=== PATIENT | female | born 1995 | race Hispanic/Latino ===

== ENCOUNTER 2019-07-27 21:06 | Inpatient (IN) | payer BC, MEDICAID ==
[~2019-07-27] VITALS: Ht 162.6 cm; Wt 93.9 kg
[2019-07-27] MEDS ORDERED: AMPICILLIN 2GM+NS 100ML 100 ML IV SCH (21:30)
[2019-07-27] MEDS ORDERED: PHARMACY COMMUNICATION MISC SCH (21:45)
[2019-07-27 22:07] LABS: APPEARANCE,URINE Cloudy (CLEAR); BILIRUBIN,URINE Negative (NEGATIVE); COLOR,URINE Yellow (YELLOW); GLUCOSE, URINE (UA) Negative (NEGATIVE); KETONES,URINE Trace mg/dL (NEGATIVE); LEUKOCYTE ESTERASE ,URINE Moderate (NEGATIVE); NITRATE,URINE Negative (NEGATIVE); OCCULT BLOOD,URINE Negative (NEGATIVE); PH,URINE 6.5 (5.0-8.0); PROTEIN,URINE POS 1+ mg/dL (NEGATIVE)
[2019-07-27] MEDS: LACTATED RINGERS 1000ML 1,000 ML IV PRN (22:13)
[2019-07-27 22:21] LABS: BACTERIA,URINE Moderate /HPF (None Seen); MUCUS,URINE Few LPF (None Seen); RBC,URINE None Seen /HPF (0-1); SQUAMOUS EPITHELIAL CELL,UR Moderate /HPF (0-2)
[2019-07-27 22:32] LABS: HEMATOCRIT 33.8 % (36-48); MEAN CORPUSCULAR HEMOGLOBIN 31.8 pg (27.0-33.0); MEAN CORPUSCULAR HGB CONC 34.6 g/dL (32.0-36.0); MEAN CORPUSCULAR VOLUME 91.8 fL (79-99); RED BLOOD CELL COUNT(AUTO) 3.68 MIL/uL (4.00-5.50); RED CELL DISTRIBUTION WIDTH 12.9 % (11.0-15.5); WHITE BLOOD COUNT (AUTO) 9.5 K/uL (4.8-10.8)
[2019-07-27 22:41] VITALS: BP 136/79
[2019-07-28] MEDS: DINOPROSTONE 10 MG VAGINAL SUPP VG SCH ×2 (02:10→23:30)
[2019-07-28] MEDS: AMPICILLIN 1GM+NS 50ML 50 ML IV SCH ×3 (02:18→22:00)
[2019-07-28] MEDS: LACTATED RINGERS 1000ML 1,000 ML IV PRN ×2 (04:36→21:18)
[2019-07-28] MEDS ORDERED: NALOXONE HCL 0.4 MG/1 ML ML IV PRN (08:45)
[2019-07-28] MEDS ORDERED: ROPIVACAINE 0.2% 100ML VIAL 100 ML EP SCH (08:45)
[2019-07-28] MEDS ORDERED: EPHEDRINE SULFATE 50 MG/ML AMPULE IVP PRN (08:45)
[2019-07-28] MEDS ORDERED: PROMETHAZINE HCL 25 MG/ML 1ML AMPULE IM PRN (08:45)
[2019-07-28] MEDS ORDERED: LACTATED RINGERS 500 ML 500 ML IV PRN (08:45)
[2019-07-28] MEDS ORDERED: MEPERIDINE-PF 50 MG/ML SYG IVP PRN (08:45)
[2019-07-28] MEDS ORDERED: FENTANYL CITRATE PF 50 MCG/1 ML 2ML VIAL ONE (14:32)
[2019-07-28 14:53] LABS: RAPID PLASMA REAGIN NONREACTIVE (NONREACTIVE)
[2019-07-28] MEDS ORDERED: OXYTOCIN-LR 20 UNITS/1000 ML 1,000 ML IV SCH (18:00)
[2019-07-28] MEDS ORDERED: LIDOCAINE HCL 1% 20 ML VIAL ONE (20:05)
[2019-07-28] MEDS ORDERED: MEASLES/MUMPS/RUBELLA VACCINE, LIVE 0.5 ML/VIAL SQ PRN (21:00)
[2019-07-28] MEDS ORDERED: WITCH HAZEL 1 PAD TP PRN (21:00)
[2019-07-28] MEDS ORDERED: ACETAMINOPHEN-CODEINE 300/30MG TAB PO PRN (21:00)
[2019-07-28] MEDS ORDERED: DIPH,PERTUSS(ACELL),TET VAC/PF 0.5 ML VIAL IM PRN (21:00)
[2019-07-28] MEDS ORDERED: BENZOCAINE/LANOLIN/ALOE VERA 60 ML AEROSOL TP PRN (21:00)
[2019-07-28] MEDS ORDERED: ACETAMINOPHEN 325 MG TAB PO PRN (21:00)
[2019-07-28] MEDS ORDERED: LANOLIN 30GM OINTMENT TP PRN (21:00)
[2019-07-28] MEDS: DOCUSATE SODIUM 100 MG CAP PO SCH (21:18)
[2019-07-28] MEDS: OXYTOCIN-LR 20 UNITS/1000 ML 1,000 ML IV SCH ×2 (21:19→21:30)
[2019-07-28] MEDS: IBUPROFEN 600 MG TABLET PO PRN (22:17)
[2019-07-28 22:49] VITALS: BP 135/77
[2019-07-28 23:32] VITALS: BP 140/73
[2019-07-29] MEDS: AMPICILLIN 1GM+NS 50ML 50 ML IV SCH ×3 (00:11→00:13)
[2019-07-29] MEDS: DINOPROSTONE 10 MG VAGINAL SUPP VG SCH (00:13)
[2019-07-29 03:35] VITALS: BP 100/58
[2019-07-29 06:59] LABS: HEMATOCRIT 30.1 % (36-48); MEAN CORPUSCULAR HEMOGLOBIN 31.4 pg (27.0-33.0); MEAN CORPUSCULAR HGB CONC 33.9 g/dL (32.0-36.0); MEAN CORPUSCULAR VOLUME 92.6 fL (79-99); RED BLOOD CELL COUNT(AUTO) 3.25 MIL/uL (4.00-5.50); RED CELL DISTRIBUTION WIDTH 13.1 % (11.0-15.5); WHITE BLOOD COUNT (AUTO) 13.7 K/uL (4.8-10.8)
[2019-07-29 07:12] VITALS: BP 105/58
[2019-07-29 09:10] LABS: HEPATITIS Bs ANTIGEN SCREEN P Negative (Negative)
[2019-07-29] MEDS: DOCUSATE SODIUM 100 MG CAP PO SCH (09:15)
--- NOTE | 2019-07-29 09:15 | NUR ---
DR. BRAMBILA ROUNDED AND DISCHARGED PATIENT TO [facility]. PATIENT TO FOLLOW UP IN ONE WEEK.
[2019-07-29] MEDS: IBUPROFEN 600 MG TABLET PO PRN (09:17)
[2019-07-29 11:11] VITALS: BP 127/76
[2019-07-29 16:32] VITALS: BP 117/74
--- NOTE | 2019-07-29 17:10 | NUR ---
DISCHARGE INSTRUCTIONS GIVEN AND PATIENT VERBALIZED UNDERSTANDING INSTRUCTIONS GIVEN. PATIENT IS STABLE AND DENIES PAIN.
--- NOTE | 2019-07-29 19:00 | NUR ---
PATIENT WAITING ON TO BE DISCHARGED. PATIENT STABLE AND DENIES PAIN.
--- NOTE | 2019-07-29 20:40 | NUR ---
PATIENT WAS TAKEN VIA W/C CARRYING BABY IN ARMS TO FAMILY VEHICLE AND WERE BOTH DISCHARGED TO PATIENT'S SIGNIFICANT OTHER IN STABLE CONDITION. PATIENT DENIES PAIN.
== END 2019-07-29 20:40 | disposition home or self-care (01) | DRG 807 ==
LOC: EDH 21:06 → LDH 21:26 → WSH 07-28 22:31
PROVIDERS: ADMIT Obstetrics & Gynecology; ATTEND Obstetrics & Gynecology
PROC: 10E0XZZ Delivery of Products of Conception, External Approach (ICD-10-PCS; principal; 2019-07-28)
PROC: 3E0R3BZ Introduction of Anesthetic Agent into Spinal Canal, Percutaneous Approach (ICD-10-PCS; 2019-07-28)
PROC: 00HU33Z Insertion of Infusion Device into Spinal Canal, Percutaneous Approach (ICD-10-PCS; 2019-07-28)
PROC: 0HQ9XZZ Repair Perineum Skin, External Approach (ICD-10-PCS; 2019-07-28)
PROC: 3E0234Z Introduction of Serum, Toxoid and Vaccine into Muscle, Percutaneous Approach (ICD-10-PCS; 2019-07-28)
PROC: 3E0134Z Introduction of Serum, Toxoid and Vaccine into Subcutaneous Tissue, Percutaneous Approach (ICD-10-PCS; 2019-07-28)
PROC: 0UQMXZZ Repair Vulva, External Approach (ICD-10-PCS; 2019-07-28)
PROC: 3E0234Z Introduction of Serum, Toxoid and Vaccine into Muscle, Percutaneous Approach (ICD-10-PCS; 2019-07-29)
DX: O99.824 Streptococcus B carrier state complicating childbirth (principal); Z37.0 Single live birth; Z3A.39 39 weeks gestation of pregnancy; O70.0 First degree perineal laceration during delivery; Z23 Encounter for immunization; O26.893 Other specified pregnancy related conditions, third trimester; Z67.11 Type A blood, Rh negative; O71.82 Other specified trauma to perineum and vulva
CPT/HCPCS: 36415; 81001; 83033; 85027; 86592; 86701; 86850; 86900; 86901; 87088; 87340; 87390; 90715; A4314; A4606; G0378; J0290; J2175; J2550; J2590; J2791; J2795; J3010; J7120